=== PATIENT | male | born 1965 | race African-American/Black ===

== ENCOUNTER 2017-08-10 05:18 | Emergency (ER) | payer OTHER, SELFPAY ==
[2017-08-10] MEDS ORDERED: Dexamethasone 10 MG/ML VIAL ONE (06:44)
[2017-08-10] MEDS ORDERED: Ibuprofen 800 MG TAB ONE (06:44)
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
== END 2017-08-10 09:45 | disposition home or self-care (01) ==
LOC: MADERS 05:18
DX: S80.212A Abrasion, left knee, initial encounter (principal); M54.6 Pain in thoracic spine; M54.5 Low back pain; V69.9XXA Occupant (driver) (passenger) of heavy transport vehicle injured in unspecified traffic accident, initial encounter
CPT/HCPCS: 70450; 72125; 72128; 72131; G0390; J1100